=== PATIENT | male | born 1955 | race Caucasian/White ===

== ENCOUNTER 2021-12-19 20:48 | Emergency (ER) | payer MEDICAID ==
[~2021-12-19] VITALS: Ht 180.3 cm; Wt 87.0 kg
[2021-12-20 00:10] VITALS: BP 125/82
== END 2021-12-20 00:18 | disposition home or self-care (01) ==
LOC: ER 20:48
DX: K94.23 Gastrostomy malfunction (principal); Z85.89 Personal history of malignant neoplasm of other organs and systems; Y83.3 Surgical operation with formation of external stoma as the cause of abnormal reaction of the patient, or of later complication, without mention of misadventure at the time of the procedure; Y92.018 Other place in single-family (private) house as the place of occurrence of the external cause
CPT/HCPCS: 99281; Z7610